=== PATIENT | female | born 1955 | race Caucasian/White ===

== ENCOUNTER 2019-06-18 15:42 | Outpatient (CLI) | payer MEDICARE, SELFPAY ==
--- NOTE | 2019-06-18 15:53 | XR_ITS ---
WS: [id number] Right knee, 3 views, 06/18/2019 Clinical Data: KNEE PAIN, RIGHT Comparison: Right knee x-ray, 01/07/2017. Findings: Narrowing of the medial joint compartment is noted. Osteophyte formation of the medial and lateral fe moral condyles and medial and lateral tibial plateaus is seen. The posterior patella shows superior a nd inferior spurs. Fractures or dislocations are seen. The soft tissues show no significant abnormalities. XR/XR knee RT 3V* [id number] Impression: Osteoarthritis of the right knee involving the medial joint compartment and pos terior patella and to a lesser extent the lateral joint compartment unchanged.
== END 2019-06-18 15:43 | disposition home or self-care (01) ==
LOC: RAD 15:49
PROVIDERS: Family Provider Family Medicine; PCP Nurse Practitioner Family; Visit Provider Nurse Practitioner Family
DX: M17.11 Unilateral primary osteoarthritis, right knee (principal); M25.561 Pain in right knee
CPT/HCPCS: 73562

== ENCOUNTER 2019-07-20 13:12 | Outpatient (CLI) | payer MEDICARE, SELFPAY ==
--- NOTE | 2019-07-20 13:20 | MM_ITS ---
WS: [id number] BILATERAL DIGITAL SCREENING MAMMOGRAPHY WITH CAD CLINICAL INFORMATION: SCREENING HISTORY: Screening mammogram. No current complaints. Family history of breast cancer.. COMPARISON: TECHNIQUE: Bilateral CC and MLO views. FINDINGS: The breasts are composed of heterogeneous fibroglandular density tissue, which can limit the detectio n of small underlying mass lesions. No suspicious mass, asymmetry, calcifications, or architectural d istortion. Nodular right parenchymal tissue is unchanged. Vascular calcification. A few lucent center ed calcifications. No evidence of malignancy. MM/[place] [id number] IMPRESSION: BI-RADS: 2-Benign FOLLOW UP: 1 Year Follow-up Recommend return to annual screening mammography.
== END 2019-07-20 13:13 | disposition home or self-care (01) ==
LOC: RADSHAW 13:18
PROVIDERS: Family Provider Family Medicine; PCP Nurse Practitioner Family; Visit Provider Nurse Practitioner Family
DX: Z12.31 Encounter for screening mammogram for malignant neoplasm of breast (principal)
CPT/HCPCS: 77067

== ENCOUNTER 2022-09-06 13:30 | Outpatient (CLI) | payer MEDICARE, SELFPAY ==
--- NOTE | 2022-09-06 14:22 | XR_ITS ---
WS: [id number] SCREENING DEXA SCAN [employer] CLINICAL INFORMATION: POSTMENOPAUSAL COMPARISON: None. FINDINGS: The L1-L4 bone mineral density measures 0.944. This corresponds to a T score score of -2.1 and Z scor e of 0.5. Left femoral neck bone mineral density measures 0.876 g/cm2. This corresponds to a T score of -1.0 an d Z score of 0.4. Right femoral neck bone mineral density measures 0.846 g/cm2. This corresponds to a T score -1.3of an d Z score of 0.1. Mean femoral neck bone mineral density measures 0.861 g/cm2. This corresponds to a T score of -1.2 an d Z score of 0.2. XR/XR DEXA axial skeleton* [id number] IMPRESSION: Osteopenia lumbar spine. Osteopenia femoral necks. Patient's FRAX calculated 10 year probability for major osteoporotic fracture i s 25.7 % and osteoporotic hip fracture is 3.9%.
== END 2022-09-06 13:31 | disposition home or self-care (01) ==
LOC: RAD 13:32
PROVIDERS: PCP Nurse Practitioner Family; Visit Provider Nurse Practitioner Family
DX: Z78.0 Asymptomatic menopausal state (principal); M85.89 Other specified disorders of bone density and structure, multiple sites
CPT/HCPCS: 77080

== ENCOUNTER 2023-10-08 08:58 | Outpatient (CLI) | payer MEDICARE, SELFPAY ==
--- NOTE | 2023-10-08 09:02 | CT_ITS ---
WS: [id number] CT CALCIUM SCORE REASON FOR VISIT: CARDIOVASCULAR DISORDER SCREENING; Coronary artery disease risk assessment COMPARISON: None TECHNIQUE: Noncontrast coronary CT in combination with quantitative analysis performed on a separate workstation were used to determine CACS (Agatston score) TOTAL EXAM DOSE: 37.41 mGy.cm ECG GATING: Prospective SCAN RANGE: Pulmonary artery bifurcation to Inferior aspect of heart COMPLICATIONS: None FINDINGS: Technical Quality/Examination Quality: Good Limitation: None OVERALL SCORES Total calcium score: 577 Total volume score: 458 mm3 Percentile: 90th to 100% ARTERY SCORES Left main coronary artery: 116 2 Left anterior descending artery: 49 Left circumflex artery: 8 Right coronary artery: 358 OTHER FINDINGS: Mediastinum: Normal. Thoracic aorta: As visualized mild atherosclerosis. Lungs: As visualized negative. Upper Abdomen: As visualized negative. MINIMAL: 1-10 MILD: 11-100 MODERATE: 101-400 SEVERE:>400 CT/CT heart w calcium score [id number] IMPRESSION: Total calcium score of 577 places the patient between the 90th 100 percentiles for females between the ages of 65 and 69. Moderately to severely i ncreased risk for cardiovascular event. GRADING OF CORONARY ARTERY DISEASE (BASED ON TOTAL CALCIUM SCORE) NO EVIDENCE OF CAD: 0 calcium score
== END 2023-10-08 08:59 | disposition home or self-care (01) ==
LOC: RAD 09:00
PROVIDERS: PCP Electrodiagnostic Medicine; Visit Provider Electrodiagnostic Medicine
DX: Z13.6 Encounter for screening for cardiovascular disorders (principal); I25.10 Atherosclerotic heart disease of native coronary artery without angina pectoris
CPT/HCPCS: 75571

== ENCOUNTER → 2023-11-07 12:59 | Outpatient (BNVA) | payer MEDICARE, SELFPAY | PROVIDERS: PCP Electrodiagnostic Medicine; Referring Provider Electrodiagnostic Medicine; Visit Provider Internal Medicine | DX: R07.9 Chest pain, unspecified (principal) | CPT/HCPCS: 93005 ==

== ENCOUNTER 2023-11-21 12:13 | Outpatient (CLI) | payer MEDICARE, SELFPAY ==
--- NOTE | 2023-11-21 12:15 | USCV_ITS ---
Cierra Bo Age: 67 Gender: F : 1955 Exam Date: 11/21/2023 12:50 Ordering Phys: Hamilton Miller M.D ([email or web address]) Technologist: BRINA [place] [facility] [place]ication: CHEST PAIN AND SHORTNESS OF BREATH BP: 118 / 84 HR: 74 Rhythm: Sinus Technical Quality: Adequate MEASUREMENTS (Male / Female) Normal Values 2D ECHO LV Diastolic Diameter PLAX 4.2 cm 4.2 - 5.9 / 3.9 - 5.3 cm IVS Diastolic Thickness 0.7 cm 0.6 - 1.0 / 0.6 - 0.9 cm IVS Systolic Thickness 1.5 cm LVPW Diastolic Thickness 1.2 cm 0.6 - 1.0 / 0.6 - 0.9 cm LVPW Systolic Thickness 1.7 cm LVOT Diameter 1.9 cm LV Ejection Fraction 2D Teich 69.2 % LV Ejection Fraction MOD 2C 51.3 % LV Ejection Fraction 2C AL 51.8 % LA Diameter 3.0 cm RA Systolic Volume 4C AL 14.7 ml RA Systolic Volume 4C MOD 14.3 ml LA Sys Volume AL 23.2 cm cubed LA Sys Volume Index AL 14.0 cm cubed/m squared Aorta at Sinotubular Diameter 2.7 cm IVC Diameter 1.4 cm M-MODE LA Ao Ratio MM 1.0 AV Cusp Separation MM 1.7 cm DOPPLER AV Peak Velocity 121.0 cm/s LVOT Peak Velocity 87.0 cm/s AV Area Cont Eq vti 2.4 cm squared AV Area Cont Eq pk 2.0 cm squared MV Peak Velocity 96.0 cm/s MV Area PHT 3.7 cm squared Mitral E to A Ratio 0.8 TR Peak Velocity 186.0 cm/s TR Peak Gradient 13.8 mmHg TR Mean Velocity 152.0 cm/s TR Mean Gradient 9.8 mmHg TR Velocity Time Integral 51.8 cm TV Peak E Velocity 58.0 cm/s Right Atrial Pressure 3.0 mmHg Pulmonary Artery Systolic Pressu 16.8 mmHg PV Peak Velocity 74.0 cm/s RV Ejection Time 0.3 s FINDINGS Left Ventricle Left ventricle is normal size. LV systolic function is normal with EF of 55 to 60%. No regional wall motion abnormalities are seen. Grade 1 diastolic dysfunction. Right Ventricle Normal in size and function Right Atrium Normal in size Left Atrium Normal in size Mitral Valve Structurally normal mitral valve. Trace mitral regurgitation Aortic Valve Structurally normal aortic valve. No significant stenosis. Mild aortic regurgitation. Tricuspid Valve Insufficient TR jet to calculate RVSP. Pulmonic Valve Not well visualized Pericardium Normal Aorta Normal in size IVC Appears to be normal CONCLUSIONS LV systolic function is normal with EF 55 to 60%. Grade 1 diastolic dysfunction. Trace mitral regurgitation Mild aortic regurgitation No comparison studies are available. Hamilton Miller MD (Electronically Signed) Final Date: 24 November 2023 23:20 S
== END 2023-11-21 12:14 | disposition home or self-care (01) ==
LOC: RAD 12:13
PROVIDERS: PCP Electrodiagnostic Medicine; Visit Provider Internal Medicine
DX: I50.30 Unspecified diastolic (congestive) heart failure (principal); R07.9 Chest pain, unspecified; R06.02 Shortness of breath
CPT/HCPCS: 93306

== ENCOUNTER 2023-12-03 07:34 | Outpatient (CLI) | payer MEDICARE, SELFPAY ==
--- NOTE | 2023-12-03 | ECG_ITS ---
[facility] Test Date: 2023-12-03 Pat Name: Cierra Bo Department: Room: Gender: Female Guard Chief: : 1955 Requested By: Hamilton Miller Order Number: [id number] Lisseth MD: Jody Mukherjee M.D. Interpretive Statements NAME OF STUDY: EXERCISE SESTAMIBI STRESS TEST INDICATION: Chest Pain; Shortness of Breath, PROCEDURE: At the baseline, the patient's blood pressure was 104/75 with a heart rate of 78. The baseline electrocardiogram showed normal sinus rhythm with normal ST-Ts.. The patient exercised for 4 minutes and 30 seconds on a standard [place] protocol. Patient attained a maximum heart rate of 142 beats per minute(94% of the maximum predicted heart rate) with a blood pressure at the peak exercise of 137/57 mm Hg. The EKG at the peak exercise revealed no significant changes. Patient did not have any chest pain or any significant cardiac arrhythmias with the exercise During the recovery phase, there were no new changes. Blood pressure at the end of the recovery phase was 164/74 mm Hg with a heart rate of 71 per minute. CONCLUSION: 1. Normal EKG response to treadmill exercise 2. No exercise-induced chest pain or cardiac arrhythmia 3. Impaired exercise tolerance, attained a maximum of 7.0 METs Electronically Signed On 12-07-2023 14:30:07 CDT by Jody Mukherjee M.D. [email or web address]
[2023-12-03 07:52] VITALS: BMI 28.1
--- NOTE | 2023-12-03 08:37 | NMCV_ITS ---
NM radha perf SPECT r/s* [id number] Cierra Bo Age: 67 Gender: F : 1955 Exam Date: 12/03/2023 08:25 Ordering Phys: Hamilton Miller M.D ([email or web address]) Technologist: PABLO Che Exam Location: [facility] Indications: SOB STRESS TEST Please see separate stress test report in [facility] for full findings IMAGE PROTOCOL Rest/Stress 1 Exercise Day Radiopharmaceutical Dose (mCi) Administration Site Administered by Rest: Tc-99m 10.5 IV PABLO Che Sestamibi Stress:Tc-99m 32.5 IV PABLO Che Sestamiloc Rest: 03-Dec-2023 60 Discovery 630 Stress: 03-Dec-2023 15 Discovery 630 Radiopharmaceutical was injected at 86 % maximum heart rate. Images obtained in supine and prone position. SPECT RESULTS Technical Quality: Excellent Raw Data Analysis: Normal Image Corrections: No attenuation or motion correction applied Summed Stress Score: 2 Summed Rest Score: 7 Summed Difference Score: 0 PERFUSION FINDINGS A small area of moderately decreased tracer uptake involving the apical inferior and apical lateral segments. No reversibility was noted in this region. FUNCTIONAL RESULTS (calculated via Gated SPECT) Stress Image LV EF (%): 71 Stress EDV (mL):65 TID: 0.93 Stress ESV (mL):19 FUNCTIONAL FINDINGS: Segmental wall motion analysis revealed no gross wall motion abnormalities. IMPRESSIONS 1. Myocardial perfusion imaging revealing a small area of persistent decreased tracer uptake involving the apical inferior and apical lateral segments suggesting myocardial scarring versus attenuation artifact. 2. Normal LV ejection fraction 71%. 3. LV wall motion analysis revealing no gross wall motion abnormalities. 4. Normal LV volume Low probability for coronary ischemia, based on the above findings Dr Jody Mukherjee MD FACC (Electronically Signed) Final Date: 03 December 2023 11:52 S
[2023-12-03 09:27] VITALS: BP 164/74; PULSE 78
== END 2023-12-03 07:35 | disposition home or self-care (01) ==
PROVIDERS: PCP Electrodiagnostic Medicine; Visit Provider Internal Medicine
DX: R07.9 Chest pain, unspecified (principal); R06.02 Shortness of breath; R94.39 Abnormal result of other cardiovascular function study
CPT/HCPCS: 36415; 78452; 93017; 96374; A9500

== ENCOUNTER 2023-12-27 13:55 | Outpatient (CLI) | payer MEDICARE, SELFPAY ==
--- NOTE | 2023-12-27 14:00 | MM_ITS ---
WS: [id number] BILATERAL 3D TOMOSYNTHESIS DIGITAL SCREENING MAMMOGRAPHY WITH CAD CLINICAL INFORMATION: SCREENING HISTORY: Screening mammogram. No current complaints. COMPARISON: 2020 TECHNIQUE: Bilateral CC and MLO views. FINDINGS: Scattered fibroglandular densities bilaterally. No suspicious focal mass, asymmetry, calcifications, or architectural distortion. No evidence of malignancy. Punctate and lucent centered calcifications. Vascular calcifications. MM/[place] [id number] IMPRESSION: BI-RADS: 2-Benign FOLLOW UP: 1 Year Follow-up Recommend return to annual screening mammography.
== END 2023-12-27 13:56 | disposition home or self-care (01) ==
LOC: RAD 13:56
PROVIDERS: PCP Electrodiagnostic Medicine; Visit Provider Electrodiagnostic Medicine
DX: Z12.31 Encounter for screening mammogram for malignant neoplasm of breast (principal); R92.323 Mammographic fibroglandular density, bilateral breasts; R92.1 Mammographic calcification found on diagnostic imaging of breast
CPT/HCPCS: 77063; 77067

== ENCOUNTER 2024-03-12 21:58 | Emergency (ER) | payer MEDICARE, SELFPAY ==
[2024-03-12 22:19] VITALS: BP 133/81; PULSE 79; RESP 18; TEMP 36.7; O2SAT 99; BMI 30.3
--- NOTE | 2024-03-12 22:50 | ED_ITS ---
HPI - Wound/Laceration General: Chief Complaint: Wound/Laceration Stated Complaint: Both Hands Cut Time Seen by Provider: 03/12/24 22:48 History of Present Illness: 68-year-old female comes in today for co mplaints of injury to both hands. Patient had fallen and caught herself with outstretched hands but the glass to the door broke on her causing her to have a laceration to her right thumb and several abrasions to the left hand and wrist area. Patient appears nontoxic. Patient appears no acute distress. Related Data Home Medications Medication Instructions Recorded Confirmed Bioflex PO 11/07/23 11/07/23 CO Q10 PO 11/07/23 11/07/23 Icaps AREDS PO 11/07/23 11/07/23 atorvastatin 40 mg tablet 20 mg PO DAILY 11/07/23 11/07/23 Previous Rx's Medication Instructions Recorded cephalexin 500 mg capsule 500 mg PO BID 7 days #14 caps 03/12/24 Allergies Allergy/AdvReac Type Severity Reaction Status Date / Time No Known Allergies Allergy Verified 11/07/23 13:09 Review of Systems General: Reports: 10 or more systems reviewed and unremarkable except in HPI and below PFSH ED PFSH: Medical History (Updated 03/12/24 @ 23:48 by BREONNA Cheema) Family history of colon cancer in father Screen for colon cancer Hypotension Surgical History History of appendectomy History of tubal ligation History of colonoscopy (~2013) normal Family History Father Cancer Colon Cancer Denies family history of Anesthesia complication Bleeding disorder Social History Smoking and tobacco/nicotine status: never used tobacco/nicotine Second hand smoke exposure: No Alcohol intake: never Substance/Drug Use: never Adopted: No Caregiver/support person: Yes Lives independently: Yes Household members: spouse and family Housing: House Marital status: service: No Pets and animals: No Do you think of yourself as: Straight/Heterosexual Current gender identity: Female Nat/Voodoo: Amish Special nat needs: No Agree to transfusion: No Physical Exam Const: COMMON NORMALS: alert HENMT: COMMON NORMALS: normocephalic HEAD & SCALP: normocephalic Neck/C-Spine: COMMON NORMALS: full ROM Resp: COMMON NORMALS: normal respiratory effort and clear to auscultation bilaterally AUSCULTATION: clear to auscultation bilaterally Cardio: COMMON NORMALS: regular rate RATE: regular rate Back/Pelvis: COMMON NORMALS: thoracic and lumbar spine normal to inspection Extremity: COMMON NORMALS: full ROM Neuro: SENSORIUM/ORIENTATION: Yes alert Skin: COMMON NORMALS: turgor normal GENERAL SKIN EXAM: turgor normal Procedures Laceration Laceration 1: Site: hand Side (If applicable): right Size (cm): 3 Description: linear Depth: simple, single layer Local Anesthetic: lidocaine 2% Amount of anesthesia used (mL): 3 Pre-repair: wound explored and irrigated extensively Skin layer closed with: nylon Size (cm): 4-0 Number of sutures: 6 Course Vital Signs: Vital signs: Vital Signs Temperature 98.0 F 03/12/24 22:19 Pulse Rate 79 03/12/24 22:19 Respiratory Rate 18 03/12/24 22:19 Blood Pressure 133/81 03/12/24 22:19 Pulse Oximetry 99 03/12/24 22:19 Oxygen Delivery Me thod Room Air 03/12/24 22:19 MDM - Wound/Laceration Medical Decision Making 5-year-old female comes in today with a laceration to her right pad of her thumb, superficial laceration to left wrist, and 2 superficial lacerations to the hand on the left side. Differential diagnosis includes laceration, fracture, foreign body, puncture wound. X-ray noted no foreign body. Wounds were cleaned and sutures were applied to the thumb wound. The other sutures were cleaned and covered with Band-Aid and antibiotic ointment. Patient reports understanding of care plan need for follow-up for suture removal. XR interpretation done by ED provider, pending radiology final review Discharge Plan Discharge Patient Disposition: Home Clinical Impression: Finger laceration Qualifiers: Encounter type: initial encounter Finger: thumb Damage to nail status: without damage Foreign body presence: without foreign body Laterality: right Qualified Code(s): S61.011A - Laceration without foreign body of right thumb without damage to nail, initial encounter Condition: Stable Prescriptions: New cephalexin 500 mg capsule 500 mg PO BID 7 Days Qty: 14 0RF No Action CO Q10 PO Icaps AREDS PO atorvastatin 40 mg tablet 20 mg PO DAILY Bioflex PO Discharge Orders: Discharge ED (Routine); Ordered 03/13/24 Ordered By: Nino Puri Referrals: Abhinav Hidalgo DO [Primary Care Provider] - Patient Instructions: Finger Laceration (ED) Activity Restrictions/Additional Instructions: Keep wound clean and dry. Activity as tolerated. Is important keep the wound as dry as possible while sutures are in place. Return to normal activity after sutures removed. Coding Level of Care Code ED Electrical System Specialist for Alexander Conn
--- NOTE | 2024-03-12 23:09 | XRR_ITS ---
PROCEDURE INFORMATION: Exam: XR Left Hand Exam date and time: 03/12/2024 11:44 PM Age: 68 years old Clinical indication: Injury or trauma; Fall; Blunt trauma (contusions or hematomas); Hand; Left; Additional info: Fb R/O palmar thumb TECHNIQUE: Imaging protocol: Radiologic exam of the left hand. Views: 3 or more views. COMPARISON: No relevant prior studies available. FINDINGS: Bones/joints: No acute fracture or dislocation. 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 Soft tissues: Palmar soft tissue swelling. No radiopaque foreign body. XR/XR hand LT min 3V* [id number] IMPRESSION: No acute bony findings or radiopaque foreign body.
[2024-03-12] MEDS: cephALEXin 500 mg Capsule PO (23:59)
[2024-03-13 00:12] VITALS: BP 149/93; PULSE 76; O2SAT 100
== END 2024-03-13 00:07 | disposition home or self-care (01) ==
PROVIDERS: Emergency Provider Nurse Practitioner Family; PCP Electrodiagnostic Medicine
DX: S61.011A Laceration without foreign body of right thumb without damage to nail, initial encounter (principal); S61.512A Laceration without foreign body of left wrist, initial encounter; S61.412A Laceration without foreign body of left hand, initial encounter; W01.110A Fall on same level from slipping, tripping and stumbling with subsequent striking against sharp glass, initial encounter
CPT/HCPCS: 12002; 73130; 99283

== ENCOUNTER 2025-01-22 14:45 | Outpatient (CLI) | payer MEDICARE, SELFPAY ==
--- NOTE | 2025-01-22 | MM_ITS ---
WS: [id number] BILATERAL 3D TOMOSYNTHESIS DIGITAL SCREENING MAMMOGRAPHY WITH CAD CLINICAL INFORMATION: ANNUAL SCREENING HISTORY: Screening mammogram. No current complaints. COMPARISON: 2023 TECHNIQUE: Bilateral CC and MLO views. FINDINGS: Scattered fibroglandular densities bilaterally. No suspicious focal mass, asymmetry, calcifications, or architectural distortion. No evidence of malignancy. Vascular calcification. A few incidental punctate and lucent centered calcifications. MM/MM scr tomosynthesis [id number] IMPRESSION: DENSITY: There are scattered areas of fibroglandular density. BI-RADS: 2 - Benign. FOLLOW UP: 1 Year Follow-up Recommend return to annual screening mammography.
== END 2025-01-22 14:46 | disposition home or self-care (01) ==
LOC: RAD 14:47
PROVIDERS: PCP Electrodiagnostic Medicine; Visit Provider Electrodiagnostic Medicine
DX: Z12.31 Encounter for screening mammogram for malignant neoplasm of breast (principal); R92.323 Mammographic fibroglandular density, bilateral breasts; R92.1 Mammographic calcification found on diagnostic imaging of breast
CPT/HCPCS: 77063; 77067